=== PATIENT | male | born 1980 | race Caucasian/White ===

== ENCOUNTER 2020-05-14 10:08 | Emergency (ER) | payer SELFPAY ==
[~2020-05-14] VITALS: Ht 170 cm; Wt 65.7 kg
[2020-05-14 11:00] LABS: BASOPHILS % (AUTO) 1 % (0-10); EOSINOPHILS # (AUTO) 0.1 10^3/uL (0.0-0.3); EOSINOPHILS % (AUTO) 1 % (0-10); HEMATOCRIT 47 % (40-54); HEMOGLOBIN 15.7 g/dL (13.3-17.7); LYMPHOCYTES # (AUTO) 1.5 10^3/uL (1.0-4.0); LYMPHOCYTES % (AUTO) 24 % (12-44); MEAN CORPUSCULAR HEMOGLOBIN 30 pg (25-34); MEAN CORPUSCULAR HGB CONC 34 g/dL (32-36); MEAN CORPUSCULAR VOLUME 89 fL (80-99); MEAN PLATELET VOLUME 10.2 fL (9.0-12.2); MONOCYTES # (AUTO) 0.4 10^3/uL (0.0-1.0); MONOCYTES % (AUTO) 6 % (0-12); NEUTROPHILS # (AUTO) 4.2 10^3/uL (1.8-7.8); NEUTROPHILS % (AUTO) 68 % (42-75); PLATELET COUNT 237 10^3/uL (130-400); WHITE BLOOD COUNT 6.2 10^3/uL (4.3-11.0)
[2020-05-14] MEDS ORDERED: ASPIRIN 81 MG CHEW (CHILDREN'S ASA) PO ONE (11:00)
--- NOTE | 2020-05-14 11:05 | ED Chest Pain ---
General Chief Complaint: Chest Pain Stated Complaint: RAPID HEARTRATE Source: patient Exam Limitations: no limitations History of Present Illness Date Seen by Provider: May 14, 2020 Time Seen by Provider: 11:03 Initial Comments To ER with reports of sensation of a rapid heart rate. He has not measured this. This began after drinking a cup of coffee this morning. He could see his abdomen palpating with each heartbeat. His symptoms were also present during EK G obtaining which reveals a normal sinus rhythm rate of 75 without ectopy. He has no known cardiac disease. He is not short of breath and does not have chest pain. He had a similar episode about 3 months ago where he awakened in the middle of the night sweating and with palpitations. Timing/Duration: changing over time ASA po FLOOR COVERER: No NTG SL FLOOR COVERER: No Associated Symptoms: No shortness of breath, No weakness Allergies and Home Medications Allergies Coded Allergies: No Known Drug Allergies (Unverified , 05/14/20) Patient Home Medication List Home Medication List Reviewed: Yes Review of Systems Review of Systems Constitutional: see HPI EENTM: No Symptoms Reported Respiratory: No Symptoms Reported Cardiovascular: See HPI, Palpitations Gastrointestinal: See HPI Genitourinary: No Symptoms Reported Musculoskeletal: no symptoms reported Skin: no symptoms reported Psychiatric/Neurological: No Symptoms Reported Endocrine: No Symptoms Reported Hematologic/Lymphatic: No Symptoms Reported Past Lungtgg-Uuqnxz-Hbftmx Hx Patient Social History Alcohol Use: Denies Use Recreational Drug Use: No Smoking Status: Never a Smoker Recent Foreign Travel: No Contact w/Someone Who Travel: No Recent Hopitalizations: No Physical Abuse: No Sexual Abuse: No Mistreated: No Fear: No Seasonal Allergies Seasonal Allergies: No Past Medical History Surgeries: No Respiratory: No Cardiac: No Neurological: No Genitourinary: No Gastrointestinal: No Musculoskeletal: No Endocrine: No HEENT: No Cancer: No Psychosocial: No Integumentary: No Blood Disorders: No Physical Exam Vital Signs Vital Signs - First Documented 05/14/20 10:57 Temp 36.5 Pulse 78 Resp 18 B/P (MAP) 117/88 (98) Pulse Ox 97 Capillary Refill : Height, Weight, BMI Height: '" Weight: lbs. oz. kg; BMI Method: General Appearance: No Apparent Distress, WD/WN HEENT: PERRL/EOMI, TMs Normal Neck: Full Range of Motion, Normal Inspection Respiratory: No Accessory Muscle Use, No Respiratory Distress Cardiovascular: Regular Rate, Rhythm, Normal Peripheral Pulses Gastrointestinal: Non Tender, Soft Extremity: Normal Capillary Refill, Normal Inspection Neurologic/Psychiatric: Alert, Oriented x3 Skin: Normal Color, Warm/Dry Progress/Results/Core Measures Results/Orders Lab Results Laboratory Tests Test 05/14/20 10:53 Range/Units White Blood Count 6.2 4.3-11.0 10^3/uL Red Blood Count 5.25 4.30-5.52 10^6/uL Hemoglobin 15.7 13.3-17.7 g/dL Hematocrit 47 40-54 % Mean Corpuscular Volume 89 80-99 fL Mean Corpuscular Hemoglobin 30 25-34 pg Mean Corpuscular Hemoglobin Concent 34 32-36 g/dL Red Cell Distribution Width 12.5 10.0-14.5 % Platelet Count 237 130-400 10^3/uL Mean Platelet Volume 10.2 9.0-12.2 fL Immature Granulocyte % (Auto) 0 % Neutrophils (%) (Auto) 68 42-75 % Lymphocytes (%) (Auto) 24 12-44 % Monocytes (%) (Auto) 6 0-12 % Eosinophils (%) (Auto) 1 0-10 % Basophils (%) (Auto) 1 0-10 % Neutrophils # (Auto) 4.2 1.8-7.8 10^3/uL Lymphocytes # (Auto) 1.5 1.0-4.0 10^3/uL Monocytes # (Auto) 0.4 0.0-1.0 10^3/uL Eosinophils # (Auto) 0.1 0.0-0.3 10^3/uL Basophils # (Auto) 0.0 0.0-0.1 10^3/uL Immature Granulocyte # (Auto) 0.0 0.0-0.1 10^3/uL Prothrombin Time 15.1 H 12.2-14.7 SEC INR Comment 1.2 0.8-1.4 Activated Partial Thromboplast Time 29 24-35 SEC D-Dimer 0.28 0.00-0.49 UG/ML Sodium Level 138 135-145 MMOL/L Potassium Level 3.8 3.6-5.0 MMOL/L Chloride Level 105 98-107 MMOL/L Carbon Dioxide Level 26 21-32 MMOL/L Anion Gap 7 5-14 MMOL/L Blood Urea Nitrogen 10 7-18 MG/DL Creatinine 0.85 0.60-1.30 MG/DL Estimat Glomerular Filtration Rate > 60 BUN/Creatinine Ratio 12 Glucose Level 97 70-105 MG/DL Calcium Level 9.3 8.5-10.1 MG/DL Corrected Calcium 8.9 8.5-10.1 MG/DL Magnesium Level 2.1 1.6-2.4 MG/DL Total Bilirubin 0.5 0.1-1.0 MG/DL Aspartate Amino Transf (AST/SGOT) 30 5-34 U/L Alanine Aminotransferase (ALT/SGPT) 39 0-55 U/L Alkaline Phosphatase 63 40-136 U/L Myoglobin 23.7 10.0-92.0 NG/ML Troponin I < 0.028 <0.028 NG/ML B-Type Natriuretic Peptide < 10.0 <100.0 PG/ML Total Protein 7.6 6.4-8.2 GM/DL Albumin 4.5 3.2-4.5 GM/DL My Orders Orders - DEIDRA CAMPOS G[employer] FARMER Cbc With Automated Diff (05/14/20 10:51) Magnesium (05/14/20 10:51) Chest 1 View, Ap/Pa Only (05/14/20 10:51) Ekg Tracing (05/14/20 10:51) Comprehensive Metabolic Panel (05/14/20 10:51) Myoglobin Serum (05/14/20 10:51) Protime With Inr (05/14/20 10:51) Partial Thromboplastin Time (05/14/20 10:51) O2 (05/14/20 10:51) Monitor-Rhythm Ecg Trace Only (05/14/20 10:51) Lipid Panel (05/15/20 06:00) Ed Iv/Invasive Line Start (05/14/20 10:51) BNP (05/14/20 10:51) Fibrin Degradation Products (05/14/20 10:51) Troponin I (05/14/20 10:51) Aspirin Chewable Tablet (Baby Aspirin Ch (05/14/20 11:00) Medications Given in ED Current Medications Medications Dose Ordered Sig/Johny Route Start Time Stop Time Status Last Admin Dose Admin Aspirin 324 mg ONCE ONCE PO 05/14/20 11:00 05/14/20 11:01 DC 05/14/20 11:23 324 MG Vital Signs/I&O 05/14/20 10:57 Temp 36.5 Pulse 78 Resp 18 B/P (MAP) 117/88 (98) Pulse Ox 97 Departure Communication (Admissions) I discussed with him the unremarkable labs here and the possibility of this being related to stress or anxiety and he agrees with that possibility. However he still needs to see cardiology for further work-up, perhaps an event monitor. In the meantime I will give him a prescription for as needed Xanax. Impression Primary Impression: Palpitations Disposition: HOME, SELF-CARE Condition: Stable Departure-Patient Inst. Decision time for Depature: 11:54 Referrals: BENY THORPE MD [facility] RELL RAMIREZ MD NO,LOCAL PHYSICIAN (PCP) Primary Care Physician Patient Instructions: Palpitations Add. Discharge Instructions: Return to ER for any concerns. Reduce your caffeine intake. You are scheduled to see Dr. Arana on 05/30/2019. All discharge instructions reviewed with patient and/or family. Voiced understanding. Scripts Alprazolam (Xanax) 0.25 Mg Tablet 0.25 MG PO BID PRN for ANXIETY, #10 TAB Prov: DEIDRA CAMPOS APRN 05/14/20 Copy Copies To 1: [facility] May 14, 2020 11:05
[2020-05-14 11:12] LABS: ALBUMIN 4.5 GM/DL (3.2-4.5); CHLORIDE 105 MMOL/L (98-107); INR 1.2 (0.8-1.4); POTASSIUM 3.8 MMOL/L (3.6-5.0); PROTHROMBIN TIME PATIENT 15.1 SEC (12.2-14.7); SODIUM 138 MMOL/L (135-145)
[2020-05-14 11:13] LABS: CALCIUM 9.3 MG/DL (8.5-10.1)
[2020-05-14 11:14] LABS: GLUCOSE 97 MG/DL (70-105); TOTAL PROTEIN 7.6 GM/DL (6.4-8.2)
[2020-05-14 11:16] LABS: BILIRUBIN,TOTAL 0.5 MG/DL (0.1-1.0); CARBON DIOXIDE 26 MMOL/L (21-32)
[2020-05-14 11:18] LABS: ALKALINE PHOSPHATASE 63 U/L (40-136); CREATININE SERUM 0.85 MG/DL (0.60-1.30); GFR ESTIMATED > 60
[2020-05-14 11:19] LABS: BUN/CREATININE RATIO 12
[2020-05-14 11:21] LABS: ALANINE AMINOTRANSFERASE 39 U/L (0-55); MAGNESIUM 2.1 MG/DL (1.6-2.4)
--- NOTE | 2020-05-14 11:25 | Diagnostic Imaging Report ---
PATIENT HISTORY: Chest pain. TECHNIQUE: Single frontal view of the chest. COMPARISON: None. FINDINGS: The lung volumes are normal. No focal consolidation is seen. No large pleural effusion or pneumothorax is seen. The cardiomediastinal silhouette is normal in size and contour. No acute osseous abnormality is seen. IMPRESSION: No acute pulmonary abnormality seen. Dictated by: Dictated on workstation # [id number]
[2020-05-14] MEDS ORDERED: ALPR0.25 PO (12:07)
[2020-05-14 12:17] VITALS: BP 105/70
== END 2020-05-14 12:17 | disposition home or self-care (01) ==
LOC: ER 10:13
DX: R00.2 Palpitations (principal)
CPT/HCPCS: 36415; 71045; 80053; 83735; 83874; 83880; 84484; 85025; 85379; 85610; 85730; 93005; 93041